=== PATIENT | female | born 1955 | race Caucasian/White ===

== ENCOUNTER 2018-03-05 16:27 | Inpatient (IN) | payer MEDICARE ==
[~2018-03-05] VITALS: Ht 162.6 cm; Wt 69.4 kg
--- NOTE | 2018-03-05 18:30 | NUR ---
Admitted from [facility] for acute weakness/ deconditioning per alissa accompanied by ambulance staff. Awake, alert x4. Denies any pain. On room air. Not in any form of distress. Informed Dr. Thompson of admission. Oriented patient to unit and equipment. Endorsed accordingly.
[2018-03-05] MEDS ORDERED: Z GUARD REMEDY PASTE 57 GM TUBE TOP PRN (19:00)
[2018-03-05] MEDS ORDERED: MAGNESIUM HYDROXIDE 30 ML LIQUID UDC PO PRN (19:00)
[2018-03-05] MEDS ORDERED: HYDR-3980 PO (19:11)
[2018-03-05] MEDS ORDERED: MIRT30TA7 PO (19:11)
[2018-03-05] MEDS ORDERED: LEVO75TA7 PO (19:11)
[2018-03-05] MEDS ORDERED: CITA40TA22 PO (19:11)
[2018-03-05] MEDS ORDERED: LORA0.5T PO (19:11)
[2018-03-05] MEDS ORDERED: RIVA10TA PO (19:11)
[2018-03-05] MEDS ORDERED: HYDR-3326 PO (19:11)
[2018-03-05] MEDS ORDERED: POTA10TA15 PO (19:11)
[2018-03-05] MEDS ORDERED: PRAM0.253 PO (19:11)
[2018-03-05] MEDS ORDERED: TRAM50TA2 PO (19:11)
[2018-03-05] MEDS ORDERED: FURO-151 PO (19:11)
[2018-03-05] MEDS ORDERED: GABA-532 PO (19:11)
[2018-03-05] MEDS ORDERED: OMEP20TA5 PO (19:11)
[2018-03-05 19:12] VITALS: BP 124/67
[2018-03-05 20:21] VITALS: BP 117/58
[2018-03-05] MEDS ORDERED: LORAZEPAM 0.5 MG TABLET PO PRN (20:30)
[2018-03-05] MEDS ORDERED: HYDROCODONE/APAP 5-325MG TABLET PO PRN (20:30)
[2018-03-05] MEDS ORDERED: Medication Not On Formulary EA (Mirtazapine 30 MG) PO SCH (21:00)
[2018-03-05] MEDS: MIRTAZAPINE 15 MG TABLET PO SCH (21:01)
[2018-03-05] MEDS: GABAPENTIN 100 MG CAPSULE PO SCH (21:01)
--- NOTE | 2018-03-05 22:23 | NUR ---
Received pt resting in bed and watching TV. AAO x4. No acute distress noted. No c/o pain or discomfort. All pertinent assessments done. Dr. Thompson seen pt. Notified Dr. Charlton regarding admission. Med recon done. VSS. Meds given as ordered. Pt requested not to be bothered with diaper change when she is sleeping, pt stated that she will just call when she needs to be changed. Both heels offloaded. Safety measures maintained. Bed alarm on. Call light and personal belongings within reach. Will continue to monitor.
[2018-03-06] MEDS: LEVOTHYROXINE SODIUM 75 MCG TABLET PO SCH (06:34)
[2018-03-06] MEDS: GABAPENTIN 100 MG CAPSULE PO SCH ×3 (06:34→21:42)
[2018-03-06] MEDS: PANTOPRAZOLE SODIUM 40 MG TABLET.DR PO SCH ×2 (06:34→17:35)
[2018-03-06 06:53] VITALS: BP 129/75
[2018-03-06 07:30] VITALS: BP 128/68
--- NOTE | 2018-03-06 08:00 | NUR ---
Received patient awake, alert x4. Not in any form of distress. With pain over right foot radiating to leg rated as 8/10. Encouraged to call fo needs. Call light within reach.
[2018-03-06] MEDS: POTASSIUM CHLORIDE 10 MEQ TAB.PRT.SR PO SCH (08:29)
[2018-03-06] MEDS: FUROSEMIDE 40 MG TABLET PO SCH (08:29)
[2018-03-06] MEDS: CITALOPRAM 20 MG TABLET PO SCH (08:29)
[2018-03-06] MEDS: PRAMIPEXOLE 0.25 MG TABLET PO SCH ×3 (08:30→17:35)
[2018-03-06] MEDS: HYDROCODONE/APAP 10-325 MG TABLET PO PRN ×2 (08:36→13:15)
[2018-03-06] MEDS ORDERED: Medication Not On Formulary EA (Omeprazole 20 MG) PO SCH (09:00)
--- NOTE | 2018-03-06 10:00 | NUR ---
Up with physical therapy, cam boot placed over right foot. Still with pain 6/10 over right foot.
[2018-03-06 16:00] VITALS: BP 100/63
[2018-03-06] MEDS: RIVAROXABAN 10 MG TABLET PO SCH (17:34)
[2018-03-06] MEDS: MIRTAZAPINE 15 MG TABLET PO SCH (20:51)
[2018-03-06] MEDS: DOCUSATE SODIUM 100 MG CAPSULE PO SCH (20:51)
[2018-03-06 21:09] VITALS: BP 100/53
[2018-03-07] MEDS: LEVOTHYROXINE SODIUM 75 MCG TABLET PO SCH (06:39)
[2018-03-07] MEDS: GABAPENTIN 100 MG CAPSULE PO SCH ×3 (06:39→21:31)
[2018-03-07] MEDS: PANTOPRAZOLE SODIUM 40 MG TABLET.DR PO SCH ×2 (06:39→16:32)
[2018-03-07 07:00] VITALS: BP 130/62
[2018-03-07 07:28] LABS: BASOPHILS # (AUTO) 0.1 K/uL (0.0-8.0); BASOPHILS % (AUTO) 0.8 % (0.0-2.0); EOSINOPHILS # (AUTO) 0.1 K/uL (0.0-0.7); EOSINOPHILS % (AUTO) 1.5 % (0.0-7.0); HEMATOCRIT 33.2 % (31.2-41.9); HEMOGLOBIN 10.9 g/dL (10.9-14.3); LYMPHOCYTES # (AUTO) 1.6 K/uL (20.0-40.0); MEAN CORPUSCULAR HEMOGLOBIN 27.8 uug (24.7-32.8); MEAN CORPUSCULAR HGB CONC 33 g/dL (32.3-35.6); MEAN CORPUSCULAR VOLUME 84.4 fL (75.5-95.3); MONOCYTES # (AUTO) 0.4 K/uL (2.0-10.0); MONOCYTES % (AUTO) 5.5 % (0.0-11.0); NEUTROPHILS # (AUTO) 5.6 K/uL (1.8-8.9); NEUTROPHILS % (AUTO) 72.2 % (38.5-71.5); PLATELET COUNT (AUTO) 215 K/uL (179-408); RED BLOOD CELL COUNT(AUTO) 3.93 MIL/uL (3.63-4.92); WHITE BLOOD COUNT (AUTO) 7.8 K/uL (3.8-11.8)
[2018-03-07 07:40] LABS: CREATININE 0.8 mg/dL (0.6-1.3); PHOSPHOROUS 3.3 mg/dL (2.5-4.9); POTASSIUM 3.8 mmol/L (3.5-5.1)
[2018-03-07 07:42] LABS: MAGNESIUM 1.2 mg/dL (1.8-2.4)
[2018-03-07] MEDS: TIZANIDINE HCL 4 MG TABLET PO SCH ×3 (09:11→22:12)
[2018-03-07] MEDS: POTASSIUM CHLORIDE 10 MEQ TAB.PRT.SR PO SCH (09:13)
[2018-03-07] MEDS: CITALOPRAM 20 MG TABLET PO SCH (09:13)
[2018-03-07] MEDS: DOCUSATE SODIUM 100 MG CAPSULE PO SCH ×2 (09:13→21:30)
[2018-03-07] MEDS: FUROSEMIDE 40 MG TABLET PO SCH (09:13)
[2018-03-07] MEDS: PRAMIPEXOLE 0.25 MG TABLET PO SCH ×3 (09:16→17:44)
[2018-03-07] MEDS: MAGNESIUM SULFATE/D5W 100 ML IV SCH ×4 (11:47→16:17)
[2018-03-07 16:00] VITALS: BP 97/55
[2018-03-07] MEDS: RIVAROXABAN 10 MG TABLET PO SCH (17:45)
--- NOTE | 2018-03-07 18:55 | NUR ---
MD AWARE OF MAGNESIUM LEVEL OF 1.2, MAGNESIUM 4GM IVPB GIVEN ORDERED.
--- NOTE | 2018-03-07 19:30 | NUR ---
RECEIVED PATIENT IN BED ALERT ORIENTED, NO COMPLAIN OF PAIN NOR DISCOMFORT AT THIS TIME. CONT TO MONITOR.
[2018-03-07 21:03] VITALS: BP 105/60
[2018-03-07] MEDS: MIRTAZAPINE 15 MG TABLET PO SCH (21:30)
--- NOTE | 2018-03-08 06:04 | NUR ---
PATIENT SLEPT MOST OF THE NIGHT, NO COMPLAIN OF PAIN NOR DISCOMFORT, KEPT CLEAN AND DRY. CONT TO MONITOR.
[2018-03-08] MEDS: GABAPENTIN 100 MG CAPSULE PO SCH ×3 (06:21→21:25)
[2018-03-08] MEDS: TIZANIDINE HCL 4 MG TABLET PO SCH ×3 (06:21→21:26)
[2018-03-08] MEDS: PANTOPRAZOLE SODIUM 40 MG TABLET.DR PO SCH ×2 (06:21→17:23)
[2018-03-08] MEDS: LEVOTHYROXINE SODIUM 75 MCG TABLET PO SCH (06:54)
--- NOTE | 2018-03-08 07:30 | NUR ---
AWAKE, PLEASANT. DENIES DISCOMFORT.MADE COMFORTABLE
[2018-03-08 08:40] VITALS: BP 96/53
[2018-03-08] MEDS: CITALOPRAM 20 MG TABLET PO SCH (08:56)
[2018-03-08] MEDS: PRAMIPEXOLE 0.25 MG TABLET PO SCH ×3 (08:57→17:23)
[2018-03-08] MEDS: POTASSIUM CHLORIDE 10 MEQ TAB.PRT.SR PO SCH (08:57)
[2018-03-08] MEDS: FUROSEMIDE 40 MG TABLET PO SCH (08:57)
[2018-03-08] MEDS: DOCUSATE SODIUM 100 MG CAPSULE PO SCH ×2 (08:57→21:25)
[2018-03-08] MEDS: HYDROCODONE/APAP 10-325 MG TABLET PO PRN ×2 (09:31→13:48)
--- NOTE | 2018-03-08 09:34 | NUR ---
DOING SOME ARTWORK, WRITING. MED X 1 FOR COMPLAINT OF BOTH FOOT PAIN.
--- NOTE | 2018-03-08 12:16 | NUR ---
INTERDISCIPLINARY TEAM CONFERENCE
[2018-03-08 16:07] VITALS: BP 106/38
[2018-03-08] MEDS: RIVAROXABAN 10 MG TABLET PO SCH (17:24)
--- NOTE | 2018-03-08 19:15 | NUR ---
Received patient sitting up in wheelchair coloring/drawing. Patient is alert and verbally responsive. Able to make needs known. Denies any pain and discomfort. No acute distress. No SOB. IV site on left wrist. Patent and intact. Kept clean and dry. All needs attended to promptly. Call light within reach. Will continue to monitor.
[2018-03-08 19:30] VITALS: BP 102/48
[2018-03-08] MEDS: MIRTAZAPINE 15 MG TABLET PO SCH (21:25)
[2018-03-09 04:00] VITALS: BP 104/60
[2018-03-09] MEDS: TIZANIDINE HCL 4 MG TABLET PO SCH ×3 (06:21→22:03)
[2018-03-09] MEDS: GABAPENTIN 100 MG CAPSULE PO SCH ×3 (06:21→22:02)
[2018-03-09] MEDS: PANTOPRAZOLE SODIUM 40 MG TABLET.DR PO SCH ×2 (06:21→17:17)
[2018-03-09] MEDS: HYDROCODONE/APAP 10-325 MG TABLET PO PRN ×2 (06:29→12:31)
[2018-03-09] MEDS: LEVOTHYROXINE SODIUM 75 MCG TABLET PO SCH (06:30)
[2018-03-09] MEDS: DOCUSATE SODIUM 100 MG CAPSULE PO SCH ×2 (08:40→20:46)
[2018-03-09] MEDS: FUROSEMIDE 40 MG TABLET PO SCH (08:40)
[2018-03-09] MEDS: POTASSIUM CHLORIDE 10 MEQ TAB.PRT.SR PO SCH (08:40)
[2018-03-09] MEDS: PRAMIPEXOLE 0.25 MG TABLET PO SCH ×3 (08:42→17:17)
[2018-03-09] MEDS: CITALOPRAM 20 MG TABLET PO SCH (08:42)
[2018-03-09 08:55] VITALS: BP 88/44
--- NOTE | 2018-03-09 09:59 | NUR ---
Received pt. in bed comfortable. A/OX3 verbally responsive and able to make her needs known. Denies CP or SOB at this time. C/O pain (7/10 P.S) on her bilateral foot, Hodge given by previous shift and effective. All due AM medications given as ordered and tolerated well. All pt. needs attended and met promptly. Safety measure and fall precaution in placed. Call light and all frequently used items within pt. reach. Will monitor pt. accordingly.
[2018-03-09] MEDS: MIRALAX 17 GM POWD.PACK PO SCH (10:57)
--- NOTE | 2018-03-09 13:16 | NUR ---
INTERDISCIPLINARY TEAM CONFERENCE
[2018-03-09 16:27] VITALS: BP 82/44
[2018-03-09] MEDS: RIVAROXABAN 10 MG TABLET PO SCH (17:23)
--- NOTE | 2018-03-09 17:44 | NUR ---
EOS NOTE: No significant change during this shift. All pt. need attended and met. All due medications given as ordered. No c/o SOB or CP. Pt. participated with PT/OT, tolerated well. Kept pt. clean and dry throughout this shift. Skin care rendered. No new skin condition noted. Lt. wrist PIV intact and patent. No s/sx of bleeding, on Xarelto. Pt. seen by Dr. Jay MD made aware of pt. c/o throbbing pain on bilateral foot, MD ordered to increase Gabapentin order .Safety measures in place. Call light and all frequently used items in reach. Will endorse to oncoming shift.
--- NOTE | 2018-03-09 19:10 | NUR ---
Sleeping during initial rounds. No s/s of pain/discomforts. No s/s of respiratory distress. Safety measure and fall precaution maintained. Continue care as planned.
[2018-03-09 19:30] VITALS: BP 99/52
[2018-03-09] MEDS: MIRTAZAPINE 15 MG TABLET PO SCH (20:47)
[2018-03-10 04:00] VITALS: BP 98/50
[2018-03-10] MEDS: GABAPENTIN 100 MG CAPSULE PO SCH ×3 (05:56→22:02)
[2018-03-10] MEDS: TIZANIDINE HCL 4 MG TABLET PO SCH ×3 (05:57→22:03)
[2018-03-10] MEDS: PANTOPRAZOLE SODIUM 40 MG TABLET.DR PO SCH ×2 (06:13→16:47)
[2018-03-10] MEDS: LEVOTHYROXINE SODIUM 75 MCG TABLET PO SCH (06:13)
--- NOTE | 2018-03-10 06:21 | NUR ---
Shift End Report: Vs stable. No complaint presented. No fall/injury. All needs attended and met. Slept good. No significant event reported all night. Continue current plan of care,.
[2018-03-10 08:03] VITALS: BP 86/43
[2018-03-10] MEDS: POTASSIUM CHLORIDE 10 MEQ TAB.PRT.SR PO SCH (08:44)
[2018-03-10] MEDS: CITALOPRAM 20 MG TABLET PO SCH (08:44)
[2018-03-10] MEDS: PRAMIPEXOLE 0.25 MG TABLET PO SCH ×3 (08:45→16:47)
[2018-03-10] MEDS: MIRALAX 17 GM POWD.PACK PO SCH (08:45)
[2018-03-10] MEDS: DOCUSATE SODIUM 100 MG CAPSULE PO SCH ×2 (08:46→20:30)
[2018-03-10] MEDS: FUROSEMIDE 40 MG TABLET PO SCH (09:00)
[2018-03-10] MEDS: HYDROCODONE/APAP 10-325 MG TABLET PO PRN ×2 (10:25→10:36)
[2018-03-10 12:06] VITALS: BP 115/66
--- NOTE | 2018-03-10 15:19 | NUR ---
ARU/Nursing- Blood pressure at 98/50 per [employer] DEVELOPER, patient denies any dizziness . B/p was rechecked 83/43 HR 96 regular. Lower ext. elevated, denies pain at this time, adequate fluid intake. Dr Lane was in to see patient was informed. Lasix was held. B/P lying 103/55 HR 75 left arm, Sitting with feet dangled 111/54- HR 74 , Standing 131/62 HR 82 . Patient kept up on her wheel chair with right ankle brace applied. Trace edema to bilateral lower extremities.Safety reviewed and continue to emphasized. Compliance noted in calling for assist.Had complained of pain on her toes, verbalized adequate relief after prn [place] 5/325 mg. 1 tab. Present saline lock, unable to flush infiltrated , was dc'd.
[2018-03-10 16:25] VITALS: BP 102/58
[2018-03-10] MEDS ORDERED: IV NORMAL SALINE 500 ML IV ONE (17:00)
[2018-03-10] MEDS: RIVAROXABAN 10 MG TABLET PO SCH (17:57)
--- NOTE | 2018-03-10 18:00 | NUR ---
ARU/Nursing- Saline lock insyte # 24 inserted to her left hand for IVF as ordered by Dr Pearson , Patient was well informed.Remains up on her chair, safety continue to review, emphasized, had been compliant.
--- NOTE | 2018-03-10 19:10 | NUR ---
Awake, denies any pain/discomforts at this time. Safety measure and fall precaution maintained. Continue care as planned.
--- NOTE | 2018-03-10 19:24 | NUR ---
IV bolus 500 ml initiated as ordered.
--- NOTE | 2018-03-10 19:30 | NUR ---
Complaining of pain on IV site. Removed and re inserted a new one on left wrist. Fairly tolerated procedure. Resume IVF as ordered.
[2018-03-10 20:13] VITALS: BP 100/54
--- NOTE | 2018-03-10 20:24 | NUR ---
IV bolus completed as ordered without any problem.
[2018-03-10] MEDS: MIRTAZAPINE 15 MG TABLET PO SCH (20:30)
[2018-03-11 04:01] VITALS: BP 120/67
--- NOTE | 2018-03-11 05:44 | NUR ---
Shift End Report: S/P IVF hydration of 500ml as ordered. SBP at this time improved 120/67. No complaint presented throughout the night. All needs attended and met. No fall/injury. Slept well. No significant event reported. Continue current rehab plan of care.
[2018-03-11] MEDS: GABAPENTIN 100 MG CAPSULE PO SCH ×3 (06:17→22:03)
[2018-03-11] MEDS: PANTOPRAZOLE SODIUM 40 MG TABLET.DR PO SCH ×2 (06:17→17:28)
[2018-03-11] MEDS: TIZANIDINE HCL 4 MG TABLET PO SCH ×3 (06:18→22:04)
[2018-03-11] MEDS: LEVOTHYROXINE SODIUM 75 MCG TABLET PO SCH (06:18)
[2018-03-11 08:04] VITALS: BP 111/59
[2018-03-11] MEDS: POTASSIUM CHLORIDE 10 MEQ TAB.PRT.SR PO SCH (09:12)
[2018-03-11] MEDS: DOCUSATE SODIUM 100 MG CAPSULE PO SCH ×2 (09:12→20:52)
[2018-03-11] MEDS: FUROSEMIDE 40 MG TABLET PO SCH (09:12)
[2018-03-11] MEDS: CITALOPRAM 20 MG TABLET PO SCH (09:13)
[2018-03-11] MEDS: PRAMIPEXOLE 0.25 MG TABLET PO SCH ×3 (09:13→17:28)
[2018-03-11] MEDS: MIRALAX 17 GM POWD.PACK PO SCH (09:15)
[2018-03-11] MEDS: HYDROCODONE/APAP 10-325 MG TABLET PO PRN ×2 (13:25→15:17)
[2018-03-11 16:10] VITALS: BP 103/55
--- NOTE | 2018-03-11 17:08 | NUR ---
Shift End Report: Patient seen upon rounds AAOX4, no distress noted, provided pain management, was noted effective. Patient participated with PT/OT therapautic exercises, tolerated well, No significant event reported. Continue current rehab plan of care.
[2018-03-11] MEDS: RIVAROXABAN 10 MG TABLET PO SCH (17:30)
--- NOTE | 2018-03-11 19:15 | NUR ---
Sleeping during rounds but easily arousable when name called. Denies any pain/discomforts at this time. Safety measure and fall precaution maintained. Continue care as planned.
[2018-03-11 20:43] VITALS: BP 97/48
[2018-03-11] MEDS: MIRTAZAPINE 15 MG TABLET PO SCH (20:52)
[2018-03-12 05:00] VITALS: BP 129/69
[2018-03-12] MEDS: TIZANIDINE HCL 4 MG TABLET PO SCH ×3 (06:05→21:09)
[2018-03-12] MEDS: GABAPENTIN 100 MG CAPSULE PO SCH ×3 (06:05→21:08)
--- NOTE | 2018-03-12 06:14 | NUR ---
Shift End Report: Slept well. No complaint presented. No fall/injury. All needs attended and met. No significant event reported all night. Continue current rehab plan of care.
[2018-03-12] MEDS: LEVOTHYROXINE SODIUM 75 MCG TABLET PO SCH (06:38)
[2018-03-12] MEDS: PANTOPRAZOLE SODIUM 40 MG TABLET.DR PO SCH ×2 (06:39→17:08)
[2018-03-12 07:46] VITALS: BP 89/45
[2018-03-12] MEDS: CITALOPRAM 20 MG TABLET PO SCH (08:35)
[2018-03-12] MEDS: FUROSEMIDE 40 MG TABLET PO SCH (08:35)
[2018-03-12] MEDS: POTASSIUM CHLORIDE 10 MEQ TAB.PRT.SR PO SCH (08:35)
[2018-03-12] MEDS: DOCUSATE SODIUM 100 MG CAPSULE PO SCH ×2 (08:35→21:08)
[2018-03-12] MEDS: MIRALAX 17 GM POWD.PACK PO SCH (08:36)
[2018-03-12] MEDS: PRAMIPEXOLE 0.25 MG TABLET PO SCH ×3 (08:37→17:03)
--- NOTE | 2018-03-12 08:56 | NUR ---
Received pt. in bed comfortable. A/OX3 verbally responsive and able to make her needs known. Denies CP or SOB at this time. All due AM medications given as ordered and tolerated well. All pt. needs attended and met promptly. Safety measure and fall precaution in placed. Call light and all frequently used items within pt. reach. Will monitor pt. accordingly.
[2018-03-12] MEDS: HYDROCODONE/APAP 10-325 MG TABLET PO PRN (10:11)
[2018-03-12 15:59] VITALS: BP 90/51
[2018-03-12] MEDS: CARBIDOPA/LEVODOPA 25-100MG TABLET PO SCH (17:03)
[2018-03-12] MEDS: RIVAROXABAN 10 MG TABLET PO SCH (17:07)
--- NOTE | 2018-03-12 18:15 | NUR ---
EOS NOTE: No significant change during this shift. All pt. need attended and met. All due medications given as ordered. No c/o SOB or CP. Kept pt. clean and dry throughout this shift. Skin care rendered. No new skin condition noted. Lt. wrist PIV intact and patent. No s/sx of bleeding, on Xarelto. Pt. seen by CONTRACT RUNNER today with order to start pt. on Sinemet. Safety measures in place. Call light and all frequently used items in reach. Will endorse to oncoming shift.
[2018-03-12 20:08] VITALS: BP 101/55
[2018-03-12] MEDS: MIRTAZAPINE 15 MG TABLET PO SCH (21:08)
--- NOTE | 2018-03-13 04:45 | NUR ---
Bedrest maintained. Incontinent of bowel and bladder. Kept clean and dry. No BM noted this shift. VSS. Needs attended. Bilateral feet contracted. Siderails up for safety. Denies any pain at this time. Will monitor patient this shift.
[2018-03-13] MEDS: LEVOTHYROXINE SODIUM 75 MCG TABLET PO SCH (06:39)
[2018-03-13] MEDS: GABAPENTIN 100 MG CAPSULE PO SCH ×3 (06:39→21:08)
[2018-03-13] MEDS: TIZANIDINE HCL 4 MG TABLET PO SCH ×3 (06:39→21:08)
[2018-03-13] MEDS: PANTOPRAZOLE SODIUM 40 MG TABLET.DR PO SCH ×2 (06:39→17:07)
[2018-03-13 06:57] VITALS: BP 124/74
[2018-03-13 07:49] VITALS: BP 112/62
[2018-03-13] MEDS: HYDROCODONE/APAP 10-325 MG TABLET PO PRN (07:53)
--- NOTE | 2018-03-13 08:06 | NUR ---
SBAR received from previous shift, uneventful night. Received pt. in bed, A/OX4 and verbally responsive, able to make her needs known. Shira CP or SOB. C/O 6/10 P.S on bilateral foot, PRN norco 10-325 mg requested by pt. and administered as ordered. All pt. needs attended promptly and met. Safety measure in place. Call light and all frequently used items within pt. reach.
[2018-03-13] MEDS: CARBIDOPA/LEVODOPA 25-100MG TABLET PO SCH ×3 (08:22→17:08)
[2018-03-13] MEDS: CITALOPRAM 20 MG TABLET PO SCH (08:22)
[2018-03-13] MEDS: DOCUSATE SODIUM 100 MG CAPSULE PO SCH ×2 (08:22→21:08)
[2018-03-13] MEDS: POTASSIUM CHLORIDE 10 MEQ TAB.PRT.SR PO SCH (08:22)
[2018-03-13] MEDS: FUROSEMIDE 40 MG TABLET PO SCH (08:22)
[2018-03-13] MEDS: PRAMIPEXOLE 0.25 MG TABLET PO SCH ×3 (08:23→17:09)
[2018-03-13] MEDS: MIRALAX 17 GM POWD.PACK PO SCH (08:27)
--- NOTE | 2018-03-13 12:43 | NUR ---
D/C LT. wrist PIV 2/2 leaking and tenderness. PIV not being use for tx currently. Pt. tolerated procedure well. No active bleeding noted.
[2018-03-13 16:18] VITALS: BP 115/63
[2018-03-13] MEDS: MAGNESIUM HYDROXIDE 30 ML LIQUID UDC PO PRN (17:09)
[2018-03-13] MEDS: RIVAROXABAN 10 MG TABLET PO SCH (17:14)
--- NOTE | 2018-03-13 18:32 | NUR ---
EOS NOTE: No significant change during this shift. All pt. need attended and met. All due medications given as ordered. No c/o SOB or CP. Kept pt. clean and dry throughout this shift. Pt. showered today and tolerated well. No s/sx of bleeding, on Xarelto. PRN MOM given for constipation. Safety measures in place. Call light and all frequently used items in reach. Will endorse to oncoming shift.
[2018-03-13] MEDS: MIRTAZAPINE 15 MG TABLET PO SCH (21:08)
[2018-03-13 21:31] VITALS: BP 101/55
[2018-03-14] VITALS (7 sets, daily range): BP systolic 83–110; BP diastolic 47–66
--- NOTE | 2018-03-14 04:41 | NUR ---
quiet night. aaox3-4 no acute distress noted. needs attended. VSS. fall precautions maintained. siderails up for safety. denies any pain nor any discomfort. tolerated po meds without difficulty.
[2018-03-14] MEDS: GABAPENTIN 100 MG CAPSULE PO SCH ×3 (06:25→21:05)
[2018-03-14] MEDS: TIZANIDINE HCL 4 MG TABLET PO SCH ×3 (06:26→21:05)
[2018-03-14] MEDS: PANTOPRAZOLE SODIUM 40 MG TABLET.DR PO SCH ×2 (06:29→17:40)
[2018-03-14] MEDS: LEVOTHYROXINE SODIUM 75 MCG TABLET PO SCH (06:30)
[2018-03-14 07:25] LABS: BASOPHILS # (AUTO) 0.1 K/uL (0.0-8.0); BASOPHILS % (AUTO) 1.2 % (0.0-2.0); EOSINOPHILS # (AUTO) 0.1 K/uL (0.0-0.7); EOSINOPHILS % (AUTO) 1.4 % (0.0-7.0); HEMATOCRIT 31.8 % (31.2-41.9); HEMOGLOBIN 10.6 g/dL (10.9-14.3); LYMPHOCYTES # (AUTO) 1.5 K/uL (20.0-40.0); LYMPHOCYTES % (AUTO) 19.7 % (20.5-51.5); MEAN CORPUSCULAR HEMOGLOBIN 27.5 uug (24.7-32.8); MEAN CORPUSCULAR HGB CONC 33 g/dL (32.3-35.6); MEAN CORPUSCULAR VOLUME 82.3 fL (75.5-95.3); MONOCYTES # (AUTO) 0.4 K/uL (2.0-10.0); MONOCYTES % (AUTO) 5.4 % (0.0-11.0); NEUTROPHILS # (AUTO) 5.5 K/uL (1.8-8.9); NEUTROPHILS % (AUTO) 72.3 % (38.5-71.5); PLATELET COUNT (AUTO) 205 K/uL (179-408); RED BLOOD CELL COUNT(AUTO) 3.86 MIL/uL (3.63-4.92); WHITE BLOOD COUNT (AUTO) 7.7 K/uL (3.8-11.8)
--- NOTE | 2018-03-14 07:30 | NUR ---
PT'S AWAKE , ALERT AND RESPONSIVE TO BOTH VERBAL AND TACTILE STIMULI , NOT IN RESPIRATORY DISTRESS DURING NURSING ROUNDS, BP LOW , 87/48, HR 58, ASKED HOW SHE'S FEELING , SHE SAID SHE STILL FEEL SLEEPY AND MAYBE BECAUSE OF THE MEDICATIONS SHE TOOK EARLIER. ELEVATED BOTH LOWER EXTREMITIES AND EXPLAINED TO HER THE REASON ,AND SHE'S AGREEABLE.WILL MONITOR BP.
[2018-03-14 08:16] LABS: BILIRUBIN,TOTAL 0.6 mg/dL (0.2-1.0); CREATININE 0.8 mg/dL (0.6-1.3); MAGNESIUM 1.8 mg/dL (1.8-2.4); PHOSPHOROUS 3.5 mg/dL (2.5-4.9); TOTAL PROTEIN, SERUM 7.3 g/dL (6.4-8.2)
[2018-03-14] MEDS: FUROSEMIDE 40 MG TABLET PO SCH (09:00)
--- NOTE | 2018-03-14 09:00 | NUR ---
0830 RECHECKED BP= 93/50, HR 60, O2 SAT= 93% IN ROOM AIR 0900 BP= 92/47, HR=71 O2 SAT 94% ROOM AIR . CHARGE NURSE OF THE DAY MADE AWARE OF THE ABOVE. WILL CONTINUE TO MONITOR.
[2018-03-14] MEDS: CITALOPRAM 20 MG TABLET PO SCH (09:08)
[2018-03-14] MEDS: MIRALAX 17 GM POWD.PACK PO SCH (09:08)
[2018-03-14] MEDS: DOCUSATE SODIUM 100 MG CAPSULE PO SCH ×2 (09:08→21:04)
[2018-03-14] MEDS: CARBIDOPA/LEVODOPA 25-100MG TABLET PO SCH ×3 (09:08→17:40)
[2018-03-14] MEDS: PRAMIPEXOLE 0.25 MG TABLET PO SCH ×3 (09:10→17:41)
[2018-03-14 09:38] LABS: THYROID STIMULATING HORMONE 1.242 mIU/mL (0.358-3.740)
[2018-03-14] MEDS: POTASSIUM CHLORIDE 10 MEQ TAB.PRT.SR PO SCH (13:06)
[2018-03-14] MEDS: MAGNESIUM HYDROXIDE 30 ML LIQUID UDC PO PRN (13:41)
[2018-03-14] MEDS: RIVAROXABAN 10 MG TABLET PO SCH (17:35)
--- NOTE | 2018-03-14 18:50 | NUR ---
DR. GUY WAS INFORMED BY MIXER ATTENDANT REGARDING LOW BP , THAT LASIX WAS NOT GIVEN , AND ASKED IF KYLEE -K SHOULD BE GIVEN , MD SAID TO HOLD MICRO K ALSO SINCE LASIX WAS NOT GIVEN. PT'S AWAKE, ALERT AND RESPONSIVE , NOT IN DISTRESS. C/O HEARTBURN PRN MED MOM GIVEN WITH GOOD EFFECT. ATE MEALS WITH GOOD APPETITE . AMBULATED WITH PHYSICAL THERAPIST . LATEST BP=98/60, HR=76. NO C/O OF DIZZINESS OR LIGHTHEADEDNESS. INCREASED FLUID INTAKE. IN STABLE CONDITION.
[2018-03-14] MEDS ORDERED: DEXTROSE 50% 50 ML DISP.SYRIN IV PRN (19:15)
[2018-03-14] MEDS: MIRTAZAPINE 15 MG TABLET PO SCH (21:05)
[2018-03-14] MEDS: BLOOD SUGAR DIAGNOSTIC 1 EACH STRIP VI SCH (21:09)
[2018-03-14] MEDS: INSULIN REGULAR, HUMAN 300 UNIT/3 ML VIAL SQ PRN (21:12)
--- NOTE | 2018-03-15 04:04 | NUR ---
aaox4 needs attended. tolerated po meds well. seen by Dr Leon. patient now on blood sugar checks. 2100 BS 88, 3u regular insulin given as coverage. No acute distress noted BP 101/55 HR 74 resp 19 Temp 97.7 pulse Ox 93% RA Needs attended. Kept comfortable. Denies any pain nor any discomfort. Incontinent of bowel and bladder. Kept clean and dry. Will monitor patient.
[2018-03-15 06:06] VITALS: BP 138/64
[2018-03-15] MEDS: LEVOTHYROXINE SODIUM 75 MCG TABLET PO SCH (06:31)
[2018-03-15] MEDS: PANTOPRAZOLE SODIUM 40 MG TABLET.DR PO SCH ×2 (06:31→17:07)
[2018-03-15] MEDS: TIZANIDINE HCL 4 MG TABLET PO SCH ×3 (06:31→22:01)
[2018-03-15] MEDS: GABAPENTIN 100 MG CAPSULE PO SCH ×3 (06:31→22:01)
[2018-03-15] MEDS: BLOOD SUGAR DIAGNOSTIC 1 EACH STRIP VI SCH ×4 (06:38→20:45)
[2018-03-15 07:58] VITALS: BP 115/67
[2018-03-15] MEDS: PRAMIPEXOLE 0.25 MG TABLET PO SCH ×3 (08:25→17:07)
[2018-03-15] MEDS: FUROSEMIDE 40 MG TABLET PO SCH (08:25)
[2018-03-15] MEDS: POTASSIUM CHLORIDE 10 MEQ TAB.PRT.SR PO SCH (08:25)
[2018-03-15] MEDS: CITALOPRAM 20 MG TABLET PO SCH (08:26)
[2018-03-15] MEDS: CARBIDOPA/LEVODOPA 25-100MG TABLET PO SCH ×3 (08:26→17:07)
[2018-03-15] MEDS: DOCUSATE SODIUM 100 MG CAPSULE PO SCH ×2 (08:26→20:37)
[2018-03-15] MEDS: MIRALAX 17 GM POWD.PACK PO SCH (08:27)
[2018-03-15] MEDS: CYANOCOBALAMIN 1000 MCG/ML VIAL IM SCH (08:27)
[2018-03-15] MEDS: INSULIN REGULAR, HUMAN 300 UNIT/3 ML VIAL SQ PRN ×3 (08:28→20:47)
--- NOTE | 2018-03-15 09:07 | NUR ---
SBAR received from previous shift. Received pt. in bed, A/OX4 and verbally responsive, able to make her needs known. Shira CP or SOB. No c/o pain at this time. No s/sx of hypo/hyperglycemia, last BS 131, covered with 2U of regular insulin. All due AM medications administered as ordered and tolerated well. Pt. scheduled for discharge on 03/17/2018. All pt. needs attended promptly and met. Safety measure in place. Call light and all frequently used items within pt. reach.
--- NOTE | 2018-03-15 09:48 | NUR ---
Obtained new diet order from Dr. Zoltan Urbina Received order to d/c Regular diet and switch pt. to NCS diet. Orders noted and carried out. Coordinated with dietary dept.
[2018-03-15 15:48] VITALS: BP 114/60
[2018-03-15] MEDS: RIVAROXABAN 10 MG TABLET PO SCH (17:09)
--- NOTE | 2018-03-15 18:55 | NUR ---
EOS NOTE: Uneventful shift. All pt. need attended and met. All due medications given as ordered. Pain well managed today with no PRN for pain administered. Kept pt. clean and dry throughout this shift. No s/sx of bleeding, on Xarelto. BS checked and covered accordingly. Safety measures in place. Call light and all frequently used items in reach. Will endorse to oncoming shift.
--- NOTE | 2018-03-15 19:20 | NUR ---
Awake during initial rounds, playing game from her cell phone. Denies any pain/discomforts at this time. safety measure and fall precaution maintained. Continue care as planned.
[2018-03-15 19:50] VITALS: BP 108/58
[2018-03-15] MEDS: MIRTAZAPINE 15 MG TABLET PO SCH (20:37)
[2018-03-16 05:49] VITALS: BP 116/62
[2018-03-16] MEDS: TIZANIDINE HCL 4 MG TABLET PO SCH ×3 (05:52→22:04)
[2018-03-16] MEDS: GABAPENTIN 100 MG CAPSULE PO SCH ×3 (05:52→22:00)
[2018-03-16] MEDS: LEVOTHYROXINE SODIUM 75 MCG TABLET PO SCH (06:17)
[2018-03-16] MEDS: PANTOPRAZOLE SODIUM 40 MG TABLET.DR PO SCH ×2 (06:18→16:29)
[2018-03-16] MEDS: BLOOD SUGAR DIAGNOSTIC 1 EACH STRIP VI SCH ×3 (06:20→16:46)
--- NOTE | 2018-03-16 06:35 | NUR ---
Shift End Report: Slept well. No complaint presented. No fall/injury. No s/s of hypo/hyperglycemia. No significant event reported all night. VS stable. Continue current rehab plan of care.
--- NOTE | 2018-03-16 08:00 | NUR ---
Received patient awake, alert x4. Denies any pain. Not in any form of distress. Says she is Ok but that her medications makes her feel under the cloud. Will continue to monitor. Call light within reach.
[2018-03-16 08:48] VITALS: BP 90/48
[2018-03-16] MEDS: MIRALAX 17 GM POWD.PACK PO SCH ×2 (09:00→09:26)
[2018-03-16] MEDS: DOCUSATE SODIUM 100 MG CAPSULE PO SCH ×2 (09:26→21:00)
[2018-03-16] MEDS: CYANOCOBALAMIN 1000 MCG/ML VIAL IM SCH (09:26)
[2018-03-16] MEDS: FUROSEMIDE 40 MG TABLET PO SCH (09:26)
[2018-03-16] MEDS: CITALOPRAM 20 MG TABLET PO SCH (09:26)
[2018-03-16] MEDS: PRAMIPEXOLE 0.25 MG TABLET PO SCH ×3 (09:26→16:28)
[2018-03-16] MEDS: CARBIDOPA/LEVODOPA 25-100MG TABLET PO SCH ×3 (09:26→16:29)
[2018-03-16] MEDS: POTASSIUM CHLORIDE 10 MEQ TAB.PRT.SR PO SCH (09:26)
--- NOTE | 2018-03-16 09:30 | NUR ---
Up with physical therapy tolerating well. No complaints of pain noted as this time. Refused Miralax medication. Claims that medication does not really work. Discussed risks and benefits but patient still refused.
[2018-03-16] MEDS: INSULIN REGULAR, HUMAN 300 UNIT/3 ML VIAL SQ PRN ×2 (12:15→16:47)
--- NOTE | 2018-03-16 13:34 | NUR ---
INTERDISCIPLINARY TEAM CONFERENCE
[2018-03-16 16:14] VITALS: BP 101/58
[2018-03-16] MEDS: MAGNESIUM HYDROXIDE 30 ML LIQUID UDC PO PRN (16:28)
[2018-03-16] MEDS: RIVAROXABAN 10 MG TABLET PO SCH (17:41)
[2018-03-16 19:30] VITALS: BP 101/50
--- NOTE | 2018-03-16 20:05 | NUR ---
Patient received in bed. AAO x 4. No sign of acute distress or SOB was noted. On room air. No Complain of pain at this time. Patient assessed. Safety measures maintained. Bed in low position, brake and alarm on, side rails up x2. Call light and personal belongings within reach. Will continue to monitor.
[2018-03-16] MEDS: MIRTAZAPINE 15 MG TABLET PO SCH (21:17)
--- NOTE | 2018-03-16 21:45 | NUR ---
Patient refused Colace 100 mg cap. Risk and benefits explained. Patient demonstrated understanding. Continue to monitor.
[2018-03-17 04:00] VITALS: BP 103/58
[2018-03-17] MEDS: GABAPENTIN 100 MG CAPSULE PO SCH ×2 (05:29→13:10)
[2018-03-17] MEDS: TIZANIDINE HCL 4 MG TABLET PO SCH ×2 (05:29→13:11)
[2018-03-17] MEDS: PANTOPRAZOLE SODIUM 40 MG TABLET.DR PO SCH (06:26)
[2018-03-17] MEDS: LEVOTHYROXINE SODIUM 75 MCG TABLET PO SCH (06:30)
--- NOTE | 2018-03-17 06:49 | NUR ---
End of the shift note Patient was stable throughout the shift and had a good sleep last night. No sign of acute distress or SOB noted. No complain of Pain. Medications given as ordered. Safety measures maintained. All needs anticipated promptly. Fall precaution maintained. Bed in low position, brake and alarm on, side rails up x2. Call light and personal belongings within reach. Continue to monitor and will endorse to the day shift nurse.
[2018-03-17] MEDS ORDERED: GLIMEPIRIDE 2 MG TABLET PO SCH (08:00)
[2018-03-17] MEDS: FUROSEMIDE 40 MG TABLET PO SCH (08:17)
[2018-03-17] MEDS: DOCUSATE SODIUM 100 MG CAPSULE PO SCH (08:19)
[2018-03-17] MEDS: CITALOPRAM 20 MG TABLET PO SCH (08:20)
[2018-03-17] MEDS: PRAMIPEXOLE 0.25 MG TABLET PO SCH ×2 (08:20→13:09)
[2018-03-17] MEDS: CARBIDOPA/LEVODOPA 25-100MG TABLET PO SCH ×2 (08:20→13:09)
[2018-03-17] MEDS: POTASSIUM CHLORIDE 10 MEQ TAB.PRT.SR PO SCH (08:20)
[2018-03-17] MEDS: CYANOCOBALAMIN 1000 MCG/ML VIAL IM SCH (08:22)
[2018-03-17] MEDS: MIRALAX 17 GM POWD.PACK PO SCH (08:22)
[2018-03-17 08:28] VITALS: BP 101/55
--- NOTE | 2018-03-17 13:28 | NUR ---
Nurse Notes; Patient alert and oriented x 4, able to verbalized needs. No changes in LOC or mentation. No SOB or distress. Assessed for pain, denies any pain or discomforts. Skin remained intact, no skin issues noted. Patient is scheduled for discharged home today and will be picked up by [facility] as prepared by [employer]. Health teachings were given to the patient using teach back method. Patient was able to verbalized understandings. Instructed patient regarding the follow up appointment on 03/20/2018 at 0930. Patient refused to have picture taken on her heels and buttocks. Explained to the patient the importance and the reason for the pictures but still patient adamantly refused to take a picture stated "the nurse when I came in here already took a picture of my heels there's no problem with my heels she took it when I got admitted". Explained to the patient the protocol of pictures of the skin but still refused. Charge Nurse informed. All belongings complete. No missing items noted. Patient is ready for discharge, awaiting for the transportation to arrive to bulk picker the patient. Will continue to monitor.
--- NOTE | 2018-03-17 14:30 | NUR ---
2 EMT STAFF FROM [facility] ARRIVED IN THE UNIT TO AGRICULTURE INSPECTOR THE PATIENT. PT WAS TRANSPORTED VIA GURNEY ON AN AMBULANCE. LEFT THE UNIT WITH NO SOB OR DISTRESS. DENIES ANY PAIN OR DISCOMFORTS.
== END 2018-03-17 14:30 | disposition home health service (06) | DRG 57 ==
PROVIDERS: ADMIT Physical Medicine & Rehabilitation Pain Medicine; ATTEND Physical Medicine & Rehabilitation Pain Medicine
DX: G20 Parkinson's disease (principal); D68.59 Other primary thrombophilia; R53.1 Weakness; E03.9 Hypothyroidism, unspecified; E78.5 Hyperlipidemia, unspecified; Z91.81 History of falling; D63.8 Anemia in other chronic diseases classified elsewhere; E11.65 Type 2 diabetes mellitus with hyperglycemia; E53.8 Deficiency of other specified B group vitamins; E83.42 Hypomagnesemia; F32.9 Major depressive disorder, single episode, unspecified; F41.9 Anxiety disorder, unspecified; G62.9 Polyneuropathy, unspecified; I25.10 Atherosclerotic heart disease of native coronary artery without angina pectoris; K59.00 Constipation, unspecified; M19.90 Unspecified osteoarthritis, unspecified site; I11.0 Hypertensive heart disease with heart failure; I50.9 Heart failure, unspecified; S92.354D Nondisplaced fracture of fifth metatarsal bone, right foot, subsequent encounter for fracture with routine healing; W19.XXXD Unspecified fall, subsequent encounter; R26.81 Unsteadiness on feet; Z85.3 Personal history of malignant neoplasm of breast; Z90.10 Acquired absence of unspecified breast and nipple; Z86.718 Personal history of other venous thrombosis and embolism; Z90.49 Acquired absence of other specified parts of digestive tract; R10.13 Epigastric pain; M25.60 Stiffness of unspecified joint, not elsewhere classified
CPT/HCPCS: 36415; 73620; 83735; 84100; 84443; 85025; 92523; 92526; 92610; 97110; 97112; 97116; 97165; 97530; 97535; J1815; J3420; J3475